=== PATIENT | male | born 1935 | race Caucasian/White ===

== ENCOUNTER → 2017-03-29 | Outpatient (CLI) | payer MEDICARE | END | disposition home or self-care (01) | LOC: PCVCCLINIC 10:44 | PROVIDERS: ATTEND Internal Medicine Cardiovascular Disease | DX: I25.10 Atherosclerotic heart disease of native coronary artery without angina pectoris (principal); I10 Essential (primary) hypertension; E78.00 Pure hypercholesterolemia, unspecified; I77.89 Other specified disorders of arteries and arterioles; Z95.5 Presence of coronary angioplasty implant and graft; Z87.891 Personal history of nicotine dependence; Z79.82 Long term (current) use of aspirin; Z79.899 Other long term (current) drug therapy | CPT/HCPCS: 80061; 93005; G0463 ==

== ENCOUNTER → 2018-02-23 | Outpatient (CLI) | payer OTHER ==
--- NOTE | 2018-02-23 12:27 | PCVCIMAG ---
APPROVED REPORT Study performed: 02/23/2018 10:37:06 Exam: Stress Echocardiogram Indication: CAD s/p PCI, Pre-op clearance, HTN, HLP Patient Location: Echo lab Stress Nurse: Jessica Rodriguez RN Status: routine Ht: 5 ft 7 in HR: 66 bpm BP: 144/78 mmHg Rhythm: NSR Procedure The patient underwent an Exercise Stress Test using the Vickey Protocol. Blood pressure, heart rate, and EKG were monitored. An Echocardiogram was performed by paint prep technician in four stages in quad fashion. At peak stress, four selected images were obtained and placed side by side with resting images for comparison. Stress Test Details Stress Test: Exercise stress testing was performed using a Vickey protocol. HR Resting HR: 66 bpmMax Heart Rate (APMHR): 137 bpm Max HR Achieved: 129 bpmTarget HR (85% APMHR): 116 bpm % of APMHR: 94 Recovery HR: 76 bpm HR response to stress: Normal HR response to stress BP Resting BP: 144/78 mmHg Max BP: 188/80 mmHg Recovery BP: 158/80 mmHg ECG Resting ECG: Sinus Rhythm Stress ECG: Sinus Rhythm ST Change: Normal Arrhythmia: None Recovery ECG: Sinus Rhythm Recovery ST Change: Normal Recovery Arrhythmia: None Clinical Reason for Termination: Maximal effort Stress Symptoms: Dyspnea Exercise duration: 7 min 20 sec Highest Stage Achieved: Stage 3: 3.4 mph at 14% grade. Exercise capacity: 9.9 METs Overall Exercise Capacity for Age: Normal Scale: Active Angina Score: None Pre-Stress Echo The resting Echocardiogram showed normal left ventricular contractility with an estimated Ejection Fraction of about >55%. Normal wall motion in all segments on baseline images. Post-Stress Echo The stress Echocardiogram showed normal left ventricular contractility with an estimated Ejection Fraction of about 65%. Normal augmentation of wall motion in all segments on post stress images. Clinical No clinical or ECG evidence for ischemia. Conclusion Clinical Response: Non-ischemic Exercise Capacity: Average Stress ECG Response: Non-ischemic Stress Echo Images: Non-ischemic The left ventricle is normal in size and wall thickness in both the rest and stress images. Other Information Study Quality: Adequate <Conclusion> The left ventricle is normal in size and wall thickness in both the rest and stress images.
== END | disposition home or self-care (01) ==
LOC: PCVCIMAG 11:03
PROVIDERS: ATTEND Internal Medicine Cardiovascular Disease
DX: I25.10 Atherosclerotic heart disease of native coronary artery without angina pectoris (principal); I10 Essential (primary) hypertension
CPT/HCPCS: 93325; 93351

== ENCOUNTER → 2018-03-28 | Outpatient (CLI) | payer OTHER | END | disposition home or self-care (01) | LOC: PCVCCLINIC 10:42 | PROVIDERS: ATTEND Internal Medicine Cardiovascular Disease | DX: I25.10 Atherosclerotic heart disease of native coronary artery without angina pectoris (principal); R00.2 Palpitations; E78.00 Pure hypercholesterolemia, unspecified; I10 Essential (primary) hypertension; R31.9 Hematuria, unspecified; I48.91 Unspecified atrial fibrillation; Z87.891 Personal history of nicotine dependence; Z72.89 Other problems related to lifestyle; Z79.82 Long term (current) use of aspirin | CPT/HCPCS: 80061; 93005; G0463 ==

== ENCOUNTER → 2018-05-23 | Outpatient (CLI) | payer OTHER | END | disposition home or self-care (01) | LOC: PCVCCLINIC 15:37 | PROVIDERS: ATTEND Internal Medicine Cardiovascular Disease | DX: I25.10 Atherosclerotic heart disease of native coronary artery without angina pectoris (principal); I48.91 Unspecified atrial fibrillation; I10 Essential (primary) hypertension; E78.00 Pure hypercholesterolemia, unspecified; E78.5 Hyperlipidemia, unspecified; Z95.5 Presence of coronary angioplasty implant and graft; Z87.891 Personal history of nicotine dependence; Z79.899 Other long term (current) drug therapy | CPT/HCPCS: 93005; G0463 ==

== ENCOUNTER → 2018-08-02 | Outpatient (CLI) | payer OTHER ==
--- NOTE | 2018-08-02 16:34 | PCVCIMAG ---
EXAM: ULTRASOUND OF THE THYROID INDICATION: Thyroid nodules. FINDINGS: The right thyroid lobe measures 1.6 x 1.5 x 3.5 cm. The left thyroid lobe measures 1.8 x 1.6 x 4.0 cm. There are 3 nodules in the right thyroid lobe and 2 nodules in the left lower lobe. The largest nodule in the right thyroid lobe is in the mid lateral lobe measuring 0.8 x 1.2 x 1.6 cm and is solid. There is a 0.6 x 0.7 x 0.7 cm partially solid partially cystic nodule in the inferior right thyroid lobe. There is a 0.5 cm probably cystic nodule in the upper right thyroid lobe. The largest nodule on the left thyroid lobe is in the mid lateral lobe measuring 0.6 x 0.6 x 1.0 cm and is solid. In the upper left thyroid lobe is a 0.3 x 0.5 x 0.6 partially cystic partially solid nodule. IMPRESSION: Several nodules in the thyroid lobe as reviewed above are similar in appearance compared to the 2016 study. LOC:[id number]
== END | disposition home or self-care (01) ==
LOC: PCVCIMAG 13:00
PROVIDERS: ATTEND Internal Medicine Cardiovascular Disease
DX: E04.2 Nontoxic multinodular goiter (principal); E21.3 Hyperparathyroidism, unspecified
CPT/HCPCS: 76536

== ENCOUNTER → 2018-11-26 | Outpatient (CLI) | payer OTHER | END | disposition home or self-care (01) | LOC: PCVCCLINIC 09:40 | PROVIDERS: ATTEND Internal Medicine Cardiovascular Disease | DX: I25.10 Atherosclerotic heart disease of native coronary artery without angina pectoris (principal); I48.91 Unspecified atrial fibrillation; E78.00 Pure hypercholesterolemia, unspecified; I10 Essential (primary) hypertension; E04.2 Nontoxic multinodular goiter; Z95.5 Presence of coronary angioplasty implant and graft; Z87.891 Personal history of nicotine dependence; Z79.82 Long term (current) use of aspirin; Z79.899 Other long term (current) drug therapy; Z72.89 Other problems related to lifestyle | CPT/HCPCS: 36415; 80061; 93005; G0463 ==

== ENCOUNTER → 2019-02-28 | Outpatient (CLI) | payer OTHER ==
--- NOTE | 2019-02-28 15:29 | PCVCIMAG ---
APPROVED REPORT Study performed: 02/28/2019 12:53:21 EXAM: Comprehensive 2D, Doppler, and color-flow Echocardiogram Patient Location: Echo lab Room #: [id number]: routine BSA: 1.93 HR: 69 bpmBP: 118/54 mmHg Rhythm: NSR Other Information Study Quality: Good Risk Factors: Cardiac Risk Factors: Hyperlipidemia, Hyperlipidemia Indications Atrial Fibrillation CAD Hypertension/HDD S/P stent, Paroxysmal A Fib 2D Dimensions IVSd: 8.10 (7-11mm)LVOT Diam: 21.80 (18-24mm) LVDd: 45.61 mm PWd: 8.68 (7-11mm)Ascending Ao: 29.03 (22-36mm) LVDs: 22.01 (25-40mm) Left Atrium: 34.85 (27-40mm) Aortic Root: 24.73 mm LV Single Plane 4CH: 58.73 % LV Single Plane 2CH: 63.50 % Biplane EF: 61.3 % Volumes Left Atrial Volume (Systole) Single Plane 4CH: 40.39 mLSingle Plane 2CH: 38.60 mL Biplane LA Volume: 40.00 mLLA ESV Index: 20.00 mL/m2 Aortic Valve AoV Peak [place].: 1.51 m/s AO Peak Gr.: 9.08 mmHgLVOT Max P.70 mmHg LVOT Max V: 0.96 m/s TABATHA Vmax: 2.38 cm2 Mitral Valve E/A Ratio: 0.9 MV Decel. Time: 176.37 ms MV E Max [place].: 0.63 m/s MV A [place].: 0.71 m/s IVRT: 100.35 ms TDI E/Lateral E': 5.73E/Medial E': 10.50 Medial E' [place].: 0.06 m/s Lateral E' [place].: 0.11 m/s Pulmonary Valve PV Peak [place].: 1.00 m/sPV Peak Gr.: 4.03 mmHg Pulmonary Vein P Vein S: 0.58 m/sP Vein A: 0.38 m/s P Vein D: 0.29 m/sP Vein A Dur.: 96.9 msec P Vein S/D Ratio: 2.00 Tricuspid Valve TR Peak [place].: 2.75 m/s TR Peak Gr.: 30.21 mmHg TV Vmax: 0.70 m/sPA Pressure: 37.00 mmHg Left Ventricle The left ventricle is normal size. There is normal LV segmental wall motion. There is normal left ventricular wall thickness. Left ventricular systolic function is normal. The left ventricular ejection fraction is within the normal range. LVEF is 60-65%. Right Ventricle The right ventricle is normal size. The right ventricular systolic function is normal. Atria The left atrium size is normal. The right atrium size is normal. Aortic Valve Aortic valve is trileaflet. The aortic valve is normal in structure and function. No aortic regurgitation is present. There is no aortic valvular stenosis. Mitral Valve The mitral valve is normal in structure. There is no mitral valve regurgitation noted. No evidence of mitral valve stenosis. Tricuspid Valve The tricuspid valve is normal in structure. Trace to mild tricuspid regurgitation with a PA pressure of 37 mmHg. Mild pulmonary hypertension. Pulmonic Valve The pulmonary valve is normal in structure. There is no pulmonic valvular regurgitation. Great Vessels The aortic root is normal in size. The ascending aorta is normal in size. Aortic arch is normal in caliber. IVC is normal in size and collapses >50% with inspiration. Pericardium There is no pericardial effusion. There is no pleural effusion. <Conclusion> The left ventricle is normal size. LVEF is 60-65%. The right ventricle is normal size. The left atrium size is normal. Aortic valve is trileaflet. The aortic valve is normal in structure and function. There is no mitral valve regurgitation noted. Trace to mild tricuspid regurgitation with a PA pressure of 37 mmHg. Mild pulmonary hypertension. The aortic root is normal in size. There is no pericardial effusion.
== END | disposition home or self-care (01) ==
LOC: PCVCIMAG 12:33
PROVIDERS: ATTEND Internal Medicine Cardiovascular Disease
DX: I07.1 Rheumatic tricuspid insufficiency (principal); I27.20 Pulmonary hypertension, unspecified; I25.10 Atherosclerotic heart disease of native coronary artery without angina pectoris; I48.91 Unspecified atrial fibrillation; I10 Essential (primary) hypertension; E78.00 Pure hypercholesterolemia, unspecified; Z95.5 Presence of coronary angioplasty implant and graft
CPT/HCPCS: 93306